=== PATIENT | female | born 1985 | race Caucasian/White ===

== ENCOUNTER 2016-08-06 21:04 | Emergency (ER) | payer OTHER ==
[~2016-08-06] VITALS: Ht 165.1 cm; Wt 77.5 kg
[~2016-08-06 21:04] MED LIST: ADDERALL XR 1010 MG PO; ADDERALL XR 3030 MG PO; AUGMENTIN875 MG PO; LORAZEPAM0.5 MG PO; NOHOMEMEDS; PERCOCET 5/31 TABLET PO; TYLENOL EXTRA500 MG PO
[2016-08-06 22:00] LABS: MCH 31.4 PG (29.0-34.0); MCHC 35.3 G/DL (30.0-36.0); MCV 89.1 FL (83-99); PLATELET COUNT 233 K/uL (156-360); RBC DIS.WIDTH-CV 12.1 % (11.8-14.6); RBC DIS.WIDTH-SD 38.4 % (39-53); RED BLOOD COUNT 4.49 M/uL (3.80-5.20); WHITE BLOOD COUNT 5.2 K/uL (4.1-10.2)
[2016-08-06 22:11] LABS: CHLORIDE 104 mEq/L (99-109); POTASSIUM 3.8 mEq/L (3.7-5.4); SODIUM 137 mEq/L (136-147)
[2016-08-06 22:14] LABS: GLUCOSE 88 mg/dL (70-99)
[2016-08-06 22:15] LABS: ANION GAP 9 MEQ/L (2-14)
[2016-08-06 22:15] LABS: ADD MIUA? YES; BILIRUBIN NEGATIVE; BLOOD NEGATIVE; COLOR YELLOW ((YELLOW)); GLUCOSE (STRIP) NEGATIVE; KETONES 20; LEUKOCYTES SMALL; NITRITE NEGATIVE; PROTEIN (STRIP) NEGATIVE; SPECIFIC GRAVITY 1.008 (1.000-1.030); UROBILINOGEN 0.2 MG/DL (0.2-1.0)
[2016-08-06 22:16] LABS: TOTAL BILIRUBIN 1.4 mg/dL (0.0-1.0)
[2016-08-06 22:17] LABS: ALKALINE PHOSPHATASE 61 IU/L (3-129); GFR ESTIMATE (CALCULATED) > 59 mL/min/
[2016-08-06 22:18] LABS: UREA NITROGEN (BUN) 5 mg/dL (9-23)
[2016-08-06 22:21] LABS: LIPASE 14 U/L (1.0-51.0)
[2016-08-06 22:23] LABS: BACTERIA RARE /HPF; EPITHELIAL CELLS 2+ /HPF; MUCUS TRACE /LPF; RED BLOOD CELLS 0-5 /HPF (0-5)
[2016-08-06 22:28] LABS: QUANTITATIVE HCG < 4.0 MIU/ML
[2016-08-06] MEDS ORDERED: KEFLEX500 MG PO (22:32)
[2016-08-06 23:01] VITALS: BP 111/59
== END 2016-08-06 23:03 | disposition home or self-care (01) ==
LOC: EME 21:04
PROVIDERS: Physician Assistant
DX: N39.0 Urinary tract infection, site not specified (principal)
CPT/HCPCS: 80053; 81003; 83690; 84702; 85027; 87086; 99281; 99283; J1885